=== PATIENT | female | born 1985 | race Caucasian/White ===

== ENCOUNTER 2019-07-31 10:14 | Outpatient (CLI) | payer OTHER | END 2019-07-31 23:59 | disposition home or self-care (01) | LOC: RAD 10:14 | PROVIDERS: ATTEND Obstetrics & Gynecology | PROC: BT04ZZZ Plain Radiography of Kidneys, Ureters and Bladder (ICD-10-PCS; principal; 2019-07-31) | DX: N83.292 Other ovarian cyst, left side (principal); R39.9 Unspecified symptoms and signs involving the genitourinary system | CPT/HCPCS: 74018; 76705; 76856 ==